=== PATIENT | female | born 2000 ===

== ENCOUNTER 2022-07-25 15:59 | Outpatient (CLI) | payer OTHER | END 2022-07-25 17:09 | disposition home or self-care (01) | LOC: PRENATAL 15:59 | PROVIDERS: ATTEND Obstetrics & Gynecology Maternal & Fetal Medicine | DX: O36.80X0 Pregnancy with inconclusive fetal viability, not applicable or unspecified (principal); Z14.8 Genetic carrier of other disease; Z3A.11 11 weeks gestation of pregnancy ==